=== PATIENT | male | born 1955 | race Caucasian/White ===

== ENCOUNTER 2022-01-01 04:17 | Day surgery (SDC) | payer BC, OTHER ==
[2021-12-30 15:43] VITALS: BMI 26.0
[2022-01-01] MEDS ORDERED: LIDOCAINE HCL/PF 1% SDV 5ML VIAL ONE (07:57)
[2022-01-01] MEDS ORDERED: BUPIVACAINE HCL/PF 0.75% 10 ML VIAL ONE (07:57)
[2022-01-01] MEDS ORDERED: LIDOCAINE HCL 1% PRESERVATIVE FREE - 30ML VIAL IJ ONE (11:36)
[2022-01-01] MEDS ORDERED: BUPIVACAINE HCL/PF 0.75% 10 ML VIAL NR ONE (11:41)
[2022-01-01 12:11] VITALS: BP 152/75; PULSE 94; RESP 18; TEMP 97.4
== END 2022-01-01 12:14 | disposition home or self-care (01) ==
LOC: JASU-SURG 04:17
PROVIDERS: ATTEND Pain Medicine Pain Medicine
PROC: BR16YZZ Fluoroscopy of Lumbar Facet Joint(s) using Other Contrast (ICD-10-PCS; 2022-01-01)
PROC: 3E0T3BZ Introduction of Anesthetic Agent into Peripheral Nerves and Plexi, Percutaneous Approach (ICD-10-PCS; principal; 2022-01-01 10:45)
DX: M47.816 Spondylosis without myelopathy or radiculopathy, lumbar region (principal)
CPT/HCPCS: 76000-TC-FY

== ENCOUNTER 2022-01-29 04:12 | Day surgery (SDC) | payer BC, OTHER ==
[2022-01-28 11:27] VITALS: BMI 26.0
[2022-01-29] MEDS ORDERED: BUPIVACAINE HCL/PF 0.75% 10 ML VIAL ONE (07:30)
[2022-01-29] MEDS ORDERED: DEXAMETHASONE SOD PHOSPHATE 10 MG/1 ML VIAL ONE (07:30)
[2022-01-29] MEDS ORDERED: LIDOCAINE HCL/PF 1% SDV 5ML VIAL ONE (07:30)
[2022-01-29] MEDS ORDERED: BUPIVACAINE HCL/PF 0.5% (5MG/ML) 10 ML VIAL ONE (07:30)
[2022-01-29 07:51] VITALS: RESP 18
[2022-01-29] MEDS ORDERED: IOHEXOL 180 MG/1 ML ML IJ ONE (10:34)
[2022-01-29] MEDS ORDERED: LIDOCAINE HCL 1% PRESERVATIVE FREE - 30ML VIAL IJ ONE (10:34)
[2022-01-29] MEDS ORDERED: DEXAMETHASONE SOD PHOSPHATE 10 MG/1 ML VIAL IVPUSH ONE (10:34)
[2022-01-29 13:01] VITALS: BP 115/76; PULSE 87; TEMP 97.8
== END 2022-01-29 11:05 | disposition home or self-care (01) ==
LOC: JASU-SURG 04:12
PROVIDERS: ATTEND Pain Medicine Pain Medicine
PROC: 3E0R33Z Introduction of Anti-inflammatory into Spinal Canal, Percutaneous Approach (ICD-10-PCS; 2022-01-29)
PROC: B01BYZZ Fluoroscopy of Spinal Cord using Other Contrast (ICD-10-PCS; 2022-01-29)
PROC: 3E0R3BZ Introduction of Anesthetic Agent into Spinal Canal, Percutaneous Approach (ICD-10-PCS; principal; 2022-01-29 09:15)
DX: M54.16 Radiculopathy, lumbar region (principal); M48.061 Spinal stenosis, lumbar region without neurogenic claudication
CPT/HCPCS: 76000-TC-FY; J1100

== ENCOUNTER 2022-04-02 08:11 | Observation (INO) | payer BC, OTHER ==
[2022-04-02] MEDS ORDERED: morphine CARPU-JECT 4 MG/1 ML DISP.SYRIN IVPUSH ONE (10:43)
[2022-04-02] MEDS ORDERED: morphine SULFATE 4 MG/ML VIAL ONE (10:48)
[2022-04-02 11:06] LABS: PH,URINE 5.5 (5.0-8.0); URINE APPEARANCE CLEAR; URINE BILIRUBIN NEGATIVE (NEGATIVE); URINE COLOR YELLOW; URINE GLUCOSE (UA) 2+ (NEGATIVE); URINE KETONE NEGATIVE (NEGATIVE); URINE LEUK ESTERASE NEGATIVE (NEGATIVE); URINE NITRITE NEGATIVE (NEGATIVE); URINE PROTEIN NEGATIVE (NEGATIVE); URINE UROBILINOGEN 0.2 mg/dL (0.2-1.0)
[2022-04-02 11:11] LABS: EOS % 1.5 % (0-4.5); HEMATOCRIT 33.6 % (35.4-49); HEMOGLOBIN 11.4 GM/dL (11.7-16.9); LYMPH % 16.8 % (8-40); MCH 30.7 pg (25.7-33.7); MCHC 33.9 g/dl (32.0-35.9); MEAN CELL VOLUME 90.7 fl (80-96); MEAN PLT VOLUME 7.2 fl (7.5-11.1); MONO % 7.9 % (3.8-10.2); NEUT % 72.8 % (42.8-82.8); PLATELET COUNT 340 10^3/uL (134-434); RBC 3.71 M/mm3 (4.00-5.60); RDW 14.6 % (11.9-15.9); WHITE BLOOD COUNT 8.8 K/mm3 (4.0-10.0)
[2022-04-02 11:14] LABS: INR 1.03 (0.83-1.09); PROTHROMBIN TIME (PATIENT) 11.8 SEC (9.7-13.0)
[2022-04-02 11:16] LABS: ACTIVATED PTT 29.6 SECONDS (25.2-36.5)
[2022-04-02 11:26] LABS: ALBUMIN 3.2 g/dl (3.4-5.0); CALCIUM 8.7 mg/dL (8.5-10.1)
[2022-04-02 11:27] LABS: BLOOD UREA NITROGEN 14.6 mg/dL (7-18)
[2022-04-02 11:30] LABS: CREATININE 0.8 mg/dL (0.55-1.3)
[2022-04-02 11:31] LABS: BILIRUBIN,TOTAL 0.3 mg/dL (0.2-1); TOT PROT 6.2 g/dl (6.4-8.2)
[2022-04-02] MEDS ORDERED: ACETAMINOPHEN 1000 MG/100 ML BAG IVPB PRN (12:56)
[2022-04-02] MEDS ORDERED: CYCLOBENZAPRINE HCL 5 MG TABLET PO ONE (13:26)
[2022-04-02] MEDS ORDERED: LIDOCAINE 5% TOPICAL PATCH TP SCH (13:30)
[2022-04-02] MEDS ORDERED: chlorproMAZINE HCL 100 MG TABLET PO SCH (14:00)
[2022-04-02] MEDS ORDERED: GABAPENTIN 300 MG CAPSULE PO SCH (14:00)
[2022-04-02] MEDS ORDERED: LITHIUM CARBONATE 300 MG CAPSULE PO SCH ×2 (14:00→22:00)
[2022-04-02] MEDS ORDERED: oxyCODONE HCL 5 MG TABLET PO PRN (14:00)
[2022-04-02] MEDS ORDERED: INSULIN SLIDING SCALE (NOVOLOG) 1 VIAL SQ SCH (16:30)
[2022-04-02 17:21] VITALS: BP 127/63; PULSE 103; RESP 17; TEMP 98.4; BMI 25.7
[2022-04-02] MEDS ORDERED: QUEtiapine FUMARATE 300 MG TABLET PO SCH ×2 (22:00)
[2022-04-02] MEDS ORDERED: ATORVASTATIN CA 20 MG TABLET (FP) PO SCH (22:00)
[2022-04-02] MEDS ORDERED: LIDOCAINE PATCH REMOVAL MC SCH (22:00)
[2022-04-03] MEDS ORDERED: LOSARTAN POTASSIUM 25 MG TABLET PO SCH (10:00)
[2022-04-03] MEDS ORDERED: DULoxetine HCL 30 MG CAPSULE.DR PO SCH (10:00)
[2022-04-03] MEDS ORDERED: chlorproMAZINE HCL 100 MG TABLET PO SCH (10:00)
== END 2022-04-02 17:50 | disposition home or self-care (01) ==
LOC: JER 08:11 → JERBED 12:07 → J7W 13:58
PROVIDERS: ADMIT Internal Medicine; ATTEND Internal Medicine
PROC: 3E033NZ Introduction of Analgesics, Hypnotics, Sedatives into Peripheral Vein, Percutaneous Approach (ICD-10-PCS; principal; 2022-04-02)
DX: Z85.46 Personal history of malignant neoplasm of prostate (principal); G89.29 Other chronic pain; E78.5 Hyperlipidemia, unspecified; E11.9 Type 2 diabetes mellitus without complications; F25.9 Schizoaffective disorder, unspecified; Z29.8 Encounter for other specified prophylactic measures
CPT/HCPCS: 0241U-QW; 36415; 71045-TC-FY; 80053; 81003; 85025; 85610; 85730; 86850; 86900; 86901; 93005; 93010; 96374; 99285-25; G0378